=== PATIENT | female | born 2000 | race Asian ===

== ENCOUNTER 2024-07-15 22:30 | Emergency (ER) | payer MEDICAID, OTHER ==
[~2024-07-15] VITALS: Ht 152.4 cm; Wt 60.9 kg
[~2024-07-15 22:30] MED LIST: CEPH-558 PO; CITA10TA99 PO; SPIR-37 PO
[2024-07-15 22:41] VITALS: BP 136/85; PULSE 111; RESP 14; TEMP 100.6; O2SAT 98
[2024-07-15 22:51] LABS: COVID AG,FIA SOURCE NASAL SWAB
[2024-07-15 23:13] LABS: INFLUENZA TYPE A NEGATIVE FOR TYPE A (NEGATIVE); INFLUENZA TYPE B NEGATIVE FOR TYPE B (NEGATIVE)
[2024-07-15 23:35] LABS: SARS-COV2 (COVID) ANTIGEN,FIA Positive (Negative)
[2024-07-16] MEDS: IBUPROFEN 600 MG TABLET PO ONE (00:36)
[2024-07-16] MEDS: ACETAMINOPHEN 325 MG TABLET PO ONE (00:36)
== END 2024-07-16 00:37 | disposition home or self-care (01) ==
LOC: EMS 22:32
DX: U07.1 COVID-19 (principal); R50.9 Fever, unspecified; R07.0 Pain in throat; Z79.899 Other long term (current) drug therapy
CPT/HCPCS: 87804; 99283